=== PATIENT | male | born 1970 | race African-American/Black ===

== ENCOUNTER 2019-08-10 08:42 | Inpatient (IN) | payer OTHER ==
[~2019-08-10] VITALS: Ht 172.7 cm; Wt 85.4 kg
[2019-08-10 09:28] LABS: HEMATOCRIT 44.9 % (42.0-52.0); HEMOGLOBIN 14.5 g/dl (13.5-17.5); MEAN CORPUSCULAR HEMOGLOBIN 24.3 pg (27.0-33.0); MEAN CORPUSCULAR HGB CONC 32.3 g/dl (32.0-36.5); MEAN CORPUSCULAR VOLUME 75.2 fl (80.0-96.0); PLATELET COUNT, AUTOMATED 188 10^3/uL (150-450); RED BLOOD COUNT 5.97 10^6/uL (4.30-6.10); WHITE BLOOD COUNT 4.4 10^3/uL (4.0-10.0)
[2019-08-10 09:56] LABS: AMPHETAMINES LEVEL URINE NEGATIVE (NEGATIVE); BARBITURATES URINE NEGATIVE (NEGATIVE); BENZODIAZEPINES URINE NEGATIVE (NEGATIVE); CANNABINOIDS URINE NEGATIVE (NEGATIVE); COCAINE METABOLITE URINE NEGATIVE (NEGATIVE); METHADONE URINE NEGATIVE (NEGATIVE); OPIATES URINE NEGATIVE (NEGATIVE); PHENCYCLIDINE URINE NEGATIVE (NEGATIVE)
[2019-08-10 10:06] LABS: ACETAMINOPHEN LEVEL < 2.0 UG/ML (10.0-30.0); ALBUMIN 4.4 GM/DL (3.2-5.2); ALT/SGPT 36 U/L (12-78); BILIRUBIN,DIRECT 0.2 MG/DL (0.0-0.2); BILIRUBIN,TOTAL 0.5 MG/DL (0.2-1.0); BLOOD UREA NITROGEN 8 MG/DL (7-18); CALCIUM LEVEL 8.9 MG/DL (8.5-10.1); CARBON DIOXIDE LEVEL 29 MEQ/L (21-32); CHLORIDE LEVEL 107 MEQ/L (98-107); ETHYL ALCOHOL (ETHANOL) < 0.003 % (0.000-0.010); GLOMERULAR FILTRATION RATE > 60.0 (>60); GLUCOSE, FASTING 94 MG/DL (70-100); POTASSIUM SERUM 3.7 MEQ/L (3.5-5.1); SALICYLATE LEVEL < 1.7 MG/DL (5.0-30.0); SODIUM LEVEL 142 MEQ/L (136-145); TOTAL PROTEIN 7.9 GM/DL (6.4-8.2)
[2019-08-10] MEDS ORDERED: ACETAMINOPHEN TAB 650MG DOSE (2X325MG) PO PRN (12:45)
[2019-08-10] MEDS ORDERED: MOM 30ML SUSPENSION UDC PO PRN (12:45)
[2019-08-10] MEDS ORDERED: MAALOX 30 ML SUSP *UDC PO PRN (12:45)
[2019-08-10] MEDS ORDERED: LORazepam 1 MG TAB PO PRN (12:45)
[2019-08-10 13:54] VITALS: BP 138/98
[2019-08-10] MEDS ORDERED: ACETAMINOPHEN 500 MG TAB PO ONE (16:00)
[2019-08-10 16:25] VITALS: BP 142/94
[2019-08-10 16:59] LABS: CPK CREATINE PHOSPHOKINASE 320 U/L (39-308)
[2019-08-10] MEDS: traZODone 50 MG TAB PO PRN (20:23)
[2019-08-11 06:24] VITALS: BP 148/94
[2019-08-11 16:49] VITALS: BP 152/100
[2019-08-11] MEDS ORDERED: FLUoxetine 10 MG CAP PO ONE (19:30)
--- NOTE | 2019-08-11 20:28 | HPE ---
DATE OF ADMISSION: 08/10/2019 CHIEF COMPLAINT: Patient complains of knee pain status post physical training this morning. HISTORY OF PRESENTING ILLNESS: 49-year-old male with history of left varicocelectomy for infertility, seasonal allergies, admitted for severe depression to the inpatient mental health unit. Hospitalist was asked to monitor for any medical issues. Patient otherwise denies any chest pain, pressure, tightness, shortness of breath, lightheadedness, or dizziness. Denies any weight gain, weight loss, changes in vision, sore throat, ear pain, discharge, tinnitus. Patient denies any nausea, vomiting, diarrhea, abdominal pain, upper or lower extremity weakness. He complains of pain in his knees after running this morning prior to coming into the emergency room and inpatient mental health unit (IMHU) admission. Patient otherwise denies any dysuria, urgency, frequency, fever, chills, or flank pain. No diarrhea, bright red blood per rectum, melena, or black tarry stools. No other issues. He is requesting Tylenol for his bilateral knee pain. He has full range of motion. No history of any recent trauma. PAST MEDICAL HISTORY: Seasonal allergies. ALLERGIES: No known drug allergies. HOME MEDICATIONS: None. SURGICAL HISTORY: Varicocelectomy 11/26/2013. HOSPITAL MEDICATIONS: - acetaminophen 650 every 6 hours as needed - trazodone 50 nightly as needed - milk of magnesium 30 mL as needed daily - Mylanta 30 mL every 4 hours as needed for indigestion FAMILY HISTORY: Father age 57, had diabetes, cause of is unknown. Mother in her 60s, alive and healthy with osteoarthritis. One brother, one sister. SOCIAL HISTORY: Patient never smoked cigarettes. Social alcohol use, maybe one beer every month. 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 No recreational drug use. Patient is . REVIEW OF SYSTEMS: Per history of present illness (HPI), 12-point system otherwise negative. PHYSICAL EXAMINATION: Temperature 97.9, pulse 80, respiratory rate 18, blood pressure 138/98, 100% on room air. Generally: Patient is awake, alert, oriented times three, answering questions appropriately. No jugular venous distention (JVD), no thyromegaly, no cervical lymphadenopathy. Lungs: Clear to auscultation. No wheezing, rales, or rhonchi. Heart: S1, S2, sinus rhythm. Abdomen: Soft, nontender, nondistended. Positive bowel sounds. Extremities: No cyanosis, clubbing, or pitting edema. Patient has no effusion in his bilateral knees. Full range of motion with flexion, extension, external abduction and adduction. LABORATORY DATA: White count 4.4, hemoglobin 14, hematocrit 44, platelet count 188. Sodium 142, potassium 3.7, chloride 107, bicarbonate 29, BUN 8, creatinine 1.1, glucose of 94, calcium of 8.4, total bilirubin 0.5, direct bilirubin 0.2, AST 22, ALT 36, alkaline phosphatase 83, total protein 7.9, albumin 4.4. 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 Patient complains of bilateral knee pain after running several miles this morning prior to coming into the emergency room. CURRENT ISSUES: 1. Bilateral knee pain, most likely secondary to osteoarthritis. Patient has been given Tylenol every 6 hours as needed for any pain. He was given 1 gram this morning. 2. Severe depression. Defer to psychiatrist for management. 3. Seasonal allergies. No acute complaints. [facility]
[2019-08-12 06:38] VITALS: BP 145/98
[2019-08-12] MEDS: FLUoxetine 10 MG CAP PO SCH (08:57)
--- NOTE | 2019-08-12 10:06 | MHIPNPDOC ---
[facility] Progress Note Progress Note DATE OF SERVICE: 08/12/19 49-year-old man seen in follow-up. Today, he reports he is tottering the Prozac well without any particular problems. He reports that he still trying to figure out ways to get his to pay more attention to his needs. He reports that he wonders whether his admission here will help his cause. The patient reports that his depression has been improving but he has an "broken heart". No behavioral problems overnight. Vital Signs Vital Signs Date Time Temp Pulse Resp B/P (MAP) Pulse Ox O2 Delivery O2 Flow Rate FiO2 08/12/19 08:09 Room Air 08/12/19 06:38 96.7 102 14 145/98 (114) 100 Current Medications Current Medications Medications (Trade) Dose Ordered Sig/Adan Route PRN Reason Start Time Stop Time Status Last Admin Dose Admin Acetaminophen (Tylenol Tab) 650 mg Q6HP PRN PO HEADACHE or DISCOMFORT 08/10/19 12:45 Al Hydrox/Mg Hydrox/Simethicone (Mylanta) 30 ml Q4HP PRN PO HEARTBURN/INDIGESTION 08/10/19 12:45 Fluoxetine HCl (PROzac) 10 mg DAILY PO 08/12/19 09:00 08/12/19 08:57 Home Med (Med Rec Complete!) ASDIRECTED XX 08/10/19 13:30 08/10/19 13:36 DC Lorazepam (Ativan) 1 mg Q4HP PRN PO ANXIETY/AGITATION 08/10/19 12:45 08/10/19 20:23 Magnesium Hydroxide (Milk Of Magnesia) 30 ml DAILYPRN PRN PO CONSTIPATION 08/10/19 12:45 Trazodone HCl (Desyrel) 50 mg QHSP PRN PO INSOMNIA 08/10/19 12:45 08/10/19 20:23 Allergies Coded Allergies: No Known Allergies (Unverified , 11/26/13) Review of Systems Review of Systems HEENT: Denies: Head Aches Skin: Denies: Rash Pulmonary: Denies: Dyspnea, Cough Cardiovascular: Denies: Chest Pain, Palpitations Gastrointestinal: Denies: Vomiting, Abdominal Pain Neurological: Denies: Weakness, Numbness Mental Status Examination General Appearance: well groomed Build: average Demeanor: average Eye Contact: average Activity: average Behavior: cooperative Speech: clear Mood: euthymic Affect: full Thought Content (Delusions): denies SI, HI, AVH Thought Content (Other): none reported Thought Content (Aggressive): none reported Perception (Hallucinations): none reported Perception (Other): none reported Cognition (Impairment of): none reported Cognition(Intelligence Est.): average Oriented: Awake, Alert Insight: improving Judgment: Improving Psychosis: Denies Assessment 49-year-old man with likely adjustment problems on top of depression related to strife is seen in follow-up, he would likely do well to continue Prozac Problem List Problems: (1) Adjustment disorder Status: Acute Response to Treatment: Improving Problem Text: Continue Prozac (2) Family conflict Status: Chronic Response to Treatment: Stable Discussed With: Nurse, Patient Medications No Active Prescriptions or Reported Meds GOLD RANDALL DO Aug 12, 2019 10:06
--- NOTE | 2019-08-12 14:46 | MHHPE ---
DATE OF ADMISSION: 08/11/2019 This is a video assessment. It is being done because of the virus pandemic. The patient is aware of this. He is seen in the presence of staff. CHIEF COMPLAINT: Feels depressed and suicidal. SUBJECTIVE: He is 49 years old. He is . He and his have been together for 10 years. They live together. Have two children, a 4-year-old son and an 11-month old daughter. His [id number] lives with them, as well. She has been there for the last 4 years, as well. He came in as he had been increasingly feeling depressed the last 6 months or so. He and his have been having marital difficulties. The patient says he had moved out of their room last year after the baby was born. Says it was done for the convenience of the baby, as the patient snores quite a bit. Says communications between him and his somewhat deteriorated; and around [place], just before then, he had decided to move out of the house. Unsure of details leading to that. But then came back. But that for the last several months, says they do not get along. He says she does not acknowledge him. Does not talk with him unless it is matters related to getting something for the baby. He feels matters have changed considerably recently and that they have had disagreements as to whether to sponsor relatives from [place]. The patient and his are from the same region in [place]. Says they have talked about sponsoring their families. had wanted to do that, but then when he had suggested that perhaps it is not financially feasible, suggests this led to further barriers, he suspects. The last few months, has been feeling increasingly depressed, despondent, felt hopeless, poor energy, diminishing in sense of pleasure. 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 Says his peers have noticed the deterioration in his work. Says has had suicidal thoughts. No plans but did think that he could shoot himself but would not get a gun. Says would not kill himself as it is against his strong restorationism callie. He feels it acts as a deterrent. He says it is getting more difficult, and he wishes not to be around. Indicates he is not unfaithful, and the post was noted. Says yesterday he went for a run. He passed an area where he hoped a wild animal of sorts would attack him. Suggests was hoping a bear would be there, though he says he has never seen any bears here. Also wished that someone would kill him. That would prevent him taking his own life. Says he ran for ten miles yesterday, and he has never done that. Usual runs have been around a mile or so. Says he last ran regularly a few months ago. He did not feel better after the run yesterday. Decided to come in. Wishes for an improvement in his relationship. Does not expect it. His has never suggested that he seek help. He says she is a psychiatrist, working at [facility]. He says relations between him and his rbihkf-gv-lzt are generally okay, but he had proposed at one point that she move out and that he would get her an apartment and support her, but the has declined. He does not have any friends here other than work friends. Says is in touch with family in [place], but they are not aware of his difficulties except for one of his relatives possibly. He says has never felt depression in this manner before. No major anxieties in the past either and no major emotional difficulties either. Says had been drinking some wine but has cut it down drastically in the last few weeks. He does not think that the drinking was disturbing him any, however. No history of consistent with hypomania nor will nor obsessions nor compulsions nor posttraumatic stress. No history of consistent with psychosis. PAST PSYCHIATRIC HISTORY: None formally. No history of inpatient hospitalizations nor suicide attempts. FAMILY PSYCHIATRIC HISTORY: Says a sister of his killed herself a few years ago. MEDICAL HISTORY: Generally healthy. No history of head injuries. SOCIAL HISTORY: Born and raised in [place]. Says his mother was one of five wives of his father. She left when the patient was quite young. Was not in the picture when he was growing up. Says he was looked after by a couple of his stepmothers, one of whom was good but the others not so. He did not go into details but does not think that he was abused as such. 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 Says did well there, including after his father's ; and when he was in his early thirties, wanted to go abroad for further education. He says he went to [employer]. Was there for about 6 years or so. 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 Says it was tough work, no trauma. Then moved to the [place] in 2008 or so. Before doing that, says went to [place], got to his . He suggested that they had prior communicating on line initially. After he came here, finally she joined him, once he joined the . Was in the for a few years. Was never deployed. 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 He says they have been doing well. He felt very pleased, particularly with what he had achieved. He indicates they brought over his [id number]-oz-[id number] about 4 years ago, initially to help with the baby, his son; and the jcsbgn-xs-wyi has stayed. Says that has generally gone well until late last year, as indicated above. He says his is now surprised that the patient has wanted to kill himself when he suggests that he had been indicating as much over the last little while to her. MENTAL STATUS EXAMINATION: He is neat. He is cooperative. There is no agitation. No psychomotor retardation. He is coherent. No abnormal movements noted. Mood is depressed. Affect is restricted but reactive. Has suicidal thoughts. No firm plan. No homicidal ideas or intents (though acknowledges there was a time a couple of months ago when he thought of hurting his muhosv-en-htj and then killing himself but did not have any firm plans for that). No evidence of any psychosis either. Cognition is grossly intact. Intellect is average. Judgment is fairly good. Insight is compromised. VITAL SIGNS: Blood pressure 152/100, temperature 99.6, pulse 98. INVESTIGATIONS: Show complete blood count essentially within normal limits except for MCV 75.2, MCH 24.3, RDW 15.3. Complete metabolic profile essentially within normal limits except for CK if 320 ( ). Urine toxicology essentially negative. ASSESSMENT: Major depressive disorder, single episode, severe. Rule out psychotic features. Marital difficulties. regarding communication between him and his . The patient is severely depressed. Has been contemplating suicide. His restorationism callie acts as a deterrent. He has marital difficulties, which have worsened the last several months. His functioning has deteriorated, as well. It is also possible that alcohol may have impacted his moods adversely, though this is not clear. He says he has cut down significantly his use of alcohol recently, the last few weeks. PLAN: He is admitted to the inpatient psychiatry unit, placed on relevant precautions. We will look at obtaining collateral information. We will also involve him in milieu in the unit. He will see the medicine consult if indicated. After discussion of the risks, benefits, and drawbacks, which he understands, he is started on Prozac at 10 mg daily. Will titrate it to help with his moods. He will be discharged with followup once he is stable. I anticipate a 3-5-day stay. The assessment took 60 minutes.
[2019-08-12 15:14] VITALS: BP 125/84
[2019-08-12] MEDS: traZODone 50 MG TAB PO PRN (20:32)
[2019-08-13 06:41] VITALS: BP 153/88
--- NOTE | 2019-08-13 09:13 | MHIPNPDOC ---
[facility] Progress Note Progress Note The patient was seen on 08/13/19. 49-year-old man seen in follow-up today. He reports that he is feeling somewhat better, however he spends the majority of the discussion attempting to have this provider write him a letter stating that he should live in a hotel and not at home and that his should have to do marriage counseling with him. Discussed with the patient that this is an appropriate and that his concerns about abandonment and spousal problems especially as it relates to divorce will be best routed to a family assessment worker in order for full discussion. He then stated that if he were turned home and became stressed out that he could burn the house down, discussed with patient as to the rationale for making a statement as to whether it was to coerce this provider to write him a letter. Redirected and discussed with him that if he wishes to live in a hotel room that he should make that choice. No behavioral problems overnight and patient sheepishly redact's said statement once challenged on the sincerity. Vital Signs Vital Signs Date Time Temp Pulse Resp B/P (MAP) Pulse Ox O2 Delivery O2 Flow Rate FiO2 08/13/19 09:09 Room Air 08/13/19 06:41 98.1 80 16 153/88 (109) 100 Current Medications Current Medications Medications (Trade) Dose Ordered Sig/Adan Route PRN Reason Start Time Stop Time Status Last Admin Dose Admin Acetaminophen (Tylenol Tab) 650 mg Q6HP PRN PO HEADACHE or DISCOMFORT 08/10/19 12:45 08/12/19 19:50 Al Hydrox/Mg Hydrox/Simethicone (Mylanta) 30 ml Q4HP PRN PO HEARTBURN/INDIGESTION 08/10/19 12:45 Fluoxetine HCl (PROzac) 10 mg DAILY PO 08/12/19 09:00 08/12/19 08:57 Home Med (Med Rec Complete!) ASDIRECTED XX 08/10/19 13:30 08/10/19 13:36 DC Lorazepam (Ativan) 1 mg Q4HP PRN PO ANXIETY/AGITATION 08/10/19 12:45 08/10/19 20:23 Magnesium Hydroxide (Milk Of Magnesia) 30 ml DAILYPRN PRN PO CONSTIPATION 08/10/19 12:45 Trazodone HCl (Desyrel) 50 mg QHSP PRN PO INSOMNIA 5/30/20 12:45 08/12/19 20:32 Allergies Coded Allergies: No Known Allergies (Unverified , 11/26/13) Review of Systems Review of Systems Skin: Denies: Rash Cardiovascular: Denies: Chest Pain, Palpitations Gastrointestinal: Denies: Nausea, Vomiting, Diarrhea Neurological: Denies: Weakness, Numbness Mental Status Examination General Appearance: well groomed Build: average Demeanor: average Eye Contact: average Activity: average Behavior: cooperative Speech: clear Mood: euthymic Affect: full Thought Process: logical/linear Thought Content (Delusions): denies SI, HI, AVH Thought Content (Other): none reported Thought Content (Aggressive): none reported Perception (Hallucinations): none reported Perception (Other): none reported Cognition(Intelligence Est.): average Oriented: Awake, Alert Insight: other (limited) Judgment: Other (limited) Psychosis: Denies Assessment 49-year-old man with a history of likely adjustment problems and family strife is seen in follow-up. He does attempt to course this provider into writing him various notes that he wishes to have in order to coerce his into allowing him to do what he wants, however when boundaries are placed he does make a statement that is sheepishly redacted quite quickly when asked more specifically about the sincerity. Problem List Problems: (1) Adjustment disorder Status: Acute Response to Treatment: Improving Problem Specific Plan: Monitor Clinically Problem Text: Continue Prozac (2) Family conflict Status: Chronic Response to Treatment: Stable Discussed With: Nurse, Patient Problem Specific Plan: Monitor Clinically Problem Text: Boundaries being placed in order to not involve treatment into his current problems with his . Medications No Active Prescriptions or Reported Meds GOLD RANDALL DO Aug 13, 2019 09:13
[2019-08-13] MEDS: FLUoxetine 10 MG CAP PO SCH (09:15)
[2019-08-13 17:10] VITALS: BP 138/98
[2019-08-14 06:35] VITALS: BP 135/95
[2019-08-14] MEDS ORDERED: FLUoxetine 20 MG CAP PO SCH (09:00)
--- NOTE | 2019-08-14 09:15 | MHIPNPDOC ---
[facility] Progress Note Progress Note DATE OF SERVICE: 08/14/19 HISTORY: . VITAL SIGNS: See below. NEW TEST RESULTS: . CURRENT MEDICATIONS: See below. MENTAL STATUS EXAMINATION: Patient is a -year old male, who is . Speech: Is . Language skills are . Thought processes including: . Thought content: . Abstract reasoning, and computation: . Description of associa tions: . Description of abnormal or psychotic thoughts: . Judgment: . Insight: [very limited, good, fair. poor]. Orientation: . Recent and remote memory: . Attention span and concentration: . Language: . Fund of knowledge: . Mood: . Affect: . DIAGNOSES: 1. . 2. . 3. . ASSESSMENT: MANAGEMENT PLAN: . TIME SPENT: minutes. Vital Signs Vital Signs Date Time Temp Pulse Resp B/P (MAP) Pulse Ox O2 Delivery O2 Flow Rate FiO2 08/14/19 06:35 97.2 94 16 135/95 (108) 100 Room Air Current Medications Current Medications Medications (Trade) Dose Ordered Sig/Adan Route PRN Reason Start Time Stop Time Status Last Admin Dose Admin Acetaminophen (Tylenol Tab) 650 mg Q6HP PRN PO HEADACHE or DISCOMFORT 08/10/19 12:45 08/12/19 19:50 Al Hydrox/Mg Hydrox/Simethicone (Mylanta) 30 ml Q4HP PRN PO HEARTBURN/INDIGESTION 08/10/19 12:45 Fluoxetine HCl (PROzac) 10 mg DAILY PO 08/12/19 09:00 08/13/19 10:59 DC 08/13/19 09:15 Fluoxetine HCl (PROzac) 20 mg DAILY PO 08/14/19 09:00 08/14/19 08:27 Home Med (Med Rec Complete!) ASDIRECTED XX 08/10/19 13:30 08/10/19 13:36 DC Lorazepam (Ativan) 1 mg Q4HP PRN PO ANXIETY/AGITATION 08/10/19 12:45 08/10/19 20:23 Magnesium Hydroxide (Milk Of Magnesia) 30 ml DAILYPRN PRN PO CONSTIPATION 08/10/19 12:45 Trazodone HCl (Desyrel) 50 mg QHSP PRN PO INSOMNIA 08/10/19 12:45 08/12/19 20:32 Allergies Coded Allergies: No Known Allergies (Unverified , 11/26/13) GOLD RANDALL DO Aug 14, 2019 09:15
--- NOTE | 2019-08-14 09:19 | MHDSPDOC ---
[facility] Discharge Summary Discharge Summary DATE OF ADMISSION: August 10, 2019 at 12:33 DATE OF DISCHARGE: Aug 14, 2019 at 12:08 DISCHARGE DIAGNOSES: 1. Adjustment disorder. 2. Family discord. REASON FOR ADMISSION: 49-year-old man is admitted after family discord and reported suicidal thoughts CONSULTANTS INVOLVED: none TREATMENT AND PROGRESS ON THE UNIT :. The patient was admitted to inpatient mental health unit and started on Prozac increased to 20 mg daily, with positive effects. The patient did demonstrate some difficulty in understanding the difficulties of his relationship, attempting to get various providers to write him notes in order to coerce his in order to go to marriage counseling or to allow him to live away from her. He was directed multiple times to discuss with and to decide his own disposition. The patient was directed to talk to a marriage and family counselor in order to understand separation and other problems. He did seem to have some general misunderstandings of how to cope with his marital problems. DISCHARGE ASSESSMENT: 49-year-old man presents with likely situational related adjustment problems, he definitely appears to be quite immature as far as he is able to understand his current marital problems and does attempt to get providers to intercede on his behalf rather than taking agency. He does attempt to coerce various people, including providers and his into actions that he wants, likely leading him to having very difficult relations ship problems. He doesn't meet involuntary criteria at this time as he is been denying suicidal and homicidal ideation for well over 24 hours, as a normal mental status exam and has been in behavioral control. He declines further voluntary and will be discharged in good callie. MENTAL STATUS EXAMINATION ON DISCHARGE: General: Well dressed with good hygiene Speech: Spontaneous and fluid Thought processes: Linear and logical Thought content: Future orientated Abstract reasoning, and computation: Intact Description of associations: Intact Description of abnormal or psychotic thoughts:Denies any suicidal or homicidal ideation. Denies any auditory or visual hallucinations. Does not appear to be responding to internal stimuli. Does not appear to be endorsing any bizarre or paranoid ideation. Judgment: likely chronically limited Insight: likely chronically limited Orientation: Alert and orientated 3 Recent and remote memory: Intact Attention span and concentration: Intact Fund of knowledge: Adequate Mood: "okay" Affect: Euthymic with a full range PLAN/FOLLOWUP ARRANGEMENTS: follow-up and safety planning completed. The amount of time spent in the coordination of care for this patient was approximately 30 minutes. Vital Signs/I&Os Vital Signs Date Time Temp Pulse Resp B/P (MAP) Pulse Ox O2 Delivery O2 Flow Rate FiO2 08/14/19 06:35 97.2 94 16 135/95 (108) 100 Room Air Medications Scheduled Fluoxetine Hcl (Fluoxetine HCl) 20 Mg Capsule, 20 MG PO DAILY for mood for 7 Days, #7 Allergies Coded Allergies: No Known Allergies (Unverified , 11/26/13) GOLD RANDALL DO Aug 14, 2019 09:19
[2019-08-14] MEDS ORDERED: FLUO20CA22 PO (11:27)
== END 2019-08-14 12:08 | disposition home or self-care (01) | DRG 755 ==
LOC: M ED 08:42 → M ED INP 12:33 → M PSY 13:52
PROVIDERS: ADMIT Psychiatry & Neurology Psychiatry; ATTEND Psychiatry & Neurology Addiction Medicine
DX: F43.20 Adjustment disorder, unspecified (principal); J30.2 Other seasonal allergic rhinitis; Z63.0 Problems in relationship with spouse or partner; M17.0 Bilateral primary osteoarthritis of knee

== ENCOUNTER → 2024-02-12 | Outpatient (CLI) | payer OTHER ==
[~2024-02-12] MED LIST: FLUO-365 PO
== END ==
LOC: M WUC 11:24
PROVIDERS: ATTEND Nurse Practitioner Family
DX: R06.02 Shortness of breath (principal); R06.2 Wheezing